=== PATIENT | female | born 1960 | race Caucasian/White ===

== ENCOUNTER 2021-07-06 09:49 | Outpatient (CLI) | payer BC, SELFPAY ==
--- NOTE | 2021-07-06 09:54 | MM_ITS ---
WS: [id number] BILATERAL DIGITAL SCREENING MAMMOGRAPHY WITH CAD CLINICAL INFORMATION: SCREENING HISTORY: Screening mammogram. No current complaints. COMPARISON: None. TECHNIQUE: Bilateral CC and MLO views. FINDINGS: Scattered fibroglandular densities bilaterally. No suspicious focal mass, asymmetry, calcifications, or architectural distortion. No evidence of malignancy. Biopsy marker left breast. Scattered punctate calcifications subareolar breasts bilaterally. IMPRESSION: MM/[place] [id number] BI-RADS: 2-Benign FOLLOW UP: 1 Year Follow-up Recommend return to annual screening mammography.
== END 2021-07-06 09:50 | disposition home or self-care (01) ==
LOC: RADSHAW 09:53
PROVIDERS: PCP Nurse Practitioner; Visit Provider Nurse Practitioner
DX: Z12.31 Encounter for screening mammogram for malignant neoplasm of breast (principal)
CPT/HCPCS: 77067

== ENCOUNTER 2021-07-12 08:47 | Outpatient (CLI) | payer BC, SELFPAY ==
[2021-07-12 09:04] VITALS: BMI 41.1
--- NOTE | 2021-07-12 09:05 | NMCV_ITS ---
phillip Bonita Gray Age: 60 Gender: F : 1960 Exam Date: 07/12/2021 09:50 Ordering Phys: Jesse Madrid M.D ([email or web address]) Technologist: NAOMI Jiang Exam Location: [facility] Indications: SHORTNESS OF BREATH STRESS TEST Please see separate stress test report in [facility] for full findings IMAGE PROTOCOL Rest/Stress 1 Lexiscan Day Radiopharmaceutical Dose (mCi) Administration Site Administered by Rest: Tc-99m 10.7 IV NAOMI Bernard Sestamibi Stress:Tc-99m 33.0 IV NAOMI Bernard Sestamibi Rest: 12-Jul-2021 60 Discovery 630 Stress: 12-Jul-2021 30 Discovery 630 0.4mg Lexiscan. Images obtained in supine and prone position. SPECT RESULTS Technical Quality: Good Raw Data Analysis: Breast attenuation Image Corrections: No attenuation or motion correction applied Summed Stress Score: 1 Summed Rest Score: 0 Summed Difference Score: 1 PERFUSION FINDINGS SPECT images demonstrate homogeneous tracer distribution throughout the myocardium. FUNCTIONAL RESULTS (calculated via Gated SPECT) Stress Image LV EF (%): 69 Stress EDV (mL):71 TID: 1.3 Stress ESV (mL):22 FUNCTIONAL FINDINGS: There is normal left ventricular systolic function. Elevated TID ratio of 1.3 IMPRESSIONS 1. Normal myocardial perfusion imaging with no evidence of ischemia 2. Elevated TID ratio of 1.3 2. LV systolic function is normal Jesse Madrid MD (Electronically Signed) Final Date: 13 July 2021 09:15 S
--- NOTE | 2021-07-12 09:05 | ECG_ITS ---
[facility] Test Date: 2021-07-12 Pat Name: Bonita Gray Department: Room: Gender: Female [employer]: : 1960 Requested By: Jesse Madrid Order Number: [id number] Marciano MD: Jesse Madrid M.D. Interpretive Statements NAME OF STUDY: LEXISCAN SESTAMIBI STRESS TEST INDICATION: [cp, ] Procedure: At the baseline, the blood pressure was 135/84 mmHg with a heart rate of 75 bpm. The electrocardiogram showed normal sinus rhythm, normal axis with normal ST and T's. The Lexiscan was infused over a period of 20 seconds. A total of 0.4 mg of Lexiscan was infused. The stress phase was continued for a total of 5 minutes. Heart rate was at the end of stress phase was 94 bpm and a blood pressure of 121/87 mmHg. The EKG at the peak infusion revealed since normal sinus rhythm with no significant ST-T wave changes. Sestamibi was injected 20 seconds after the Lexiscan infusion. Blood pressure at the end of recovery phase was 128/84 mmHg with a heart rate of 89 bpm. Conclusion: 1. Normal EKG response to Lexiscan infusion 2. No Lexiscan induced chest pain or cardiac arrhythmia. 3. Normal blood pressure and heart rate response. 4. Sestamibi/sestamibi perfusion scan pending; see separate report. Electronically Signed On 08-15-2021 10:13:37 ELECTRO TECH by Jesse Madrid M.D. [email or web address]
[2021-07-12] MEDS: regadenoson 0.4 Mg/5 ml Syringe IVP (10:38)
[2021-07-12 10:40] VITALS: BP 126/84; PULSE 86
== END 2021-07-12 08:48 | disposition home or self-care (01) ==
LOC: CDL 08:50
PROVIDERS: PCP Nurse Practitioner; Visit Provider Internal Medicine
DX: R07.9 Chest pain, unspecified (principal); R06.02 Shortness of breath
CPT/HCPCS: 78452; 93017; A9500; J2785

== ENCOUNTER 2022-01-18 06:00 | Outpatient (RCR) | payer BC, SELFPAY | END 2022-02-04 23:59 | disposition home or self-care (01) | LOC: GPT 06:00 | PROVIDERS: PCP Nurse Practitioner; Referring Provider Nurse Practitioner; Visit Provider Nurse Practitioner | DX: M54.16 Radiculopathy, lumbar region (principal); M16.0 Bilateral primary osteoarthritis of hip | CPT/HCPCS: 97110; 97162; G0283 ==

== ENCOUNTER 2022-02-05 06:00 | Outpatient (RCR) | payer BC, SELFPAY | END 2022-03-07 23:59 | disposition home or self-care (01) | LOC: GPT 06:00 | PROVIDERS: PCP Nurse Practitioner; Referring Provider Nurse Practitioner; Visit Provider Nurse Practitioner | DX: M47.896 Other spondylosis, lumbar region (principal); M54.16 Radiculopathy, lumbar region; M16.0 Bilateral primary osteoarthritis of hip | CPT/HCPCS: 97110; G0283 ==

== ENCOUNTER 2022-03-08 06:00 | Outpatient (RCR) | payer BC, SELFPAY | END 2022-03-22 23:59 | disposition home or self-care (01) | LOC: GPT 06:00 | PROVIDERS: PCP Nurse Practitioner; Referring Provider Nurse Practitioner; Visit Provider Nurse Practitioner | DX: M54.16 Radiculopathy, lumbar region (principal); M16.0 Bilateral primary osteoarthritis of hip | CPT/HCPCS: 97110; 97112; 97140; G0283 ==

== ENCOUNTER 2022-03-08 07:20 | Outpatient (CLI) | payer BC, SELFPAY ==
--- NOTE | 2022-03-08 07:29 | USCV_ITS ---
Bonita Gray Age: 61 Gender: F : 1960 Exam Date: 03/08/2022 07:50 Ordering Phys: Stan Ramon Technologist: JODY Exam Location[place] [facility] [place] [facility] [place] Indication: EVALUATE FOR AAA HISTORY: Diameter (cm) AP x Transverse x Length Velocity (cm/s) Waveform Prox Aorta: 2.73 x 2.58 x 73.50 Triphasic Mid Aorta: 1.76 x 1.99 x 90.10 Triphasic Distal Aorta: 1.36 x 1.44 x 106.60 Triphasic Right Iliac Prox: 1.05 x 1.06 x 100.80 Triphasic Left Iliac Prox: 1.10 x 1.17 x 97.50 Triphasic Stent Prox Landing x x Aneurysmal Sac Max x x Lt Lat Sac Dim Rt Lat Sac Dim Stent Dist Landing x x Right Iliac Stent x x Left Iliac Stent x x Right Renal Art Left Renal Art FINDINGS: Mild diffuse plaques in the abdominal aorta Normal Doppler flow velocities in the aorta and in the proximal common iliac arteries CONCLUSIONS Mild diffuse plaques in the abdominal aorta No evidence of aneurysm in the abdominal aorta or in the proximal common iliac arteries No significant stenosis, based on the Doppler velocities Dr Chuckie Meneses MD [facility] (Electronically Signed) Final Date: 08 March 2022 19:03 S
== END 2022-03-08 07:21 | disposition home or self-care (01) ==
LOC: RAD 07:22
PROVIDERS: PCP Nurse Practitioner; Visit Provider Nurse Practitioner
DX: R93.5 Abnormal findings on diagnostic imaging of other abdominal regions, including retroperitoneum (principal)
CPT/HCPCS: 93978

== ENCOUNTER 2022-10-17 13:18 | Outpatient (CLI) | payer BC, SELFPAY ==
--- NOTE | 2022-10-17 13:45 | USCV_ITS ---
Bonita Gray Age: 61 Gender: F : 1960 Exam Date: 10/17/2022 13:41 Ordering Phys: Jesse Madrid M.D ([email or web address]) Technologist: JODY [place]am [place] [facility] [place] Indication: CHEST PAIN AND SHORTNESS OF BREATH BP: 136 / 88 HR: 107 Rhythm: Sinus Technical Quality: Suboptimal MEASUREMENTS (Male / Female) Normal Values 2D ECHO LVOT Diameter 2.0 cm LV Ejection Fraction MOD 2C 69.8 % LV Ejection Fraction 2C AL 70.7 % LA Diameter 2.6 cm LA Width 2.7 cm LA Height 4.2 cm RA Width 2.9 cm RA Height 3.3 cm Aorta at Sinotubular Diameter 1.9 cm IVC Diameter 1.6 cm M-MODE Aortic Annulus Diameter 2.4 cm LA Ao Ratio MM 1.1 MV E Point Septal Separation 0.8 cm DOPPLER AV Peak Velocity 156.7 cm/s LVOT Peak Velocity 113.0 cm/s AV Area Cont Eq vti 2.1 cm squared AV Area Cont Eq pk 2.3 cm squared MV Peak Velocity 118.0 cm/s MV Area PHT 5.0 cm squared Mitral E to A Ratio 0.7 MV E' Velocity 47.5 cm/s Mitral E to MV E' Ratio 7.1 Mitral E to LV E' Lateral Ratio 6.0 Mitral E to LV E' Septal Ratio 8.6 TR Peak Velocity 154.7 cm/s TR Peak Gradient 9.6 mmHg TR Mean Velocity 132.4 cm/s TR Mean Gradient 6.9 mmHg TR Velocity Time Integral 27.0 cm TV Peak E Velocity 49.0 cm/s Right Atrial Pressure 3.0 mmHg Pulmonary Artery Systolic Pressu 12.6 mmHg PV Peak Velocity 101.0 cm/s RV Acceleration Time 0.1 s RV Ejection Time 0.2 s RV AcT/ET 0.6 FINDINGS Left Ventricle Technically limited quality echocardiogram because of poor ultrasonic windows. LV systolic function is normal with EF of 55 to 60%. No regional wall motion abnormalities are seen. Grade 1 diastolic dysfunction Right Ventricle Normal in size and function Right Atrium Normal in size Left Atrium Normal in size Mitral Valve Structurally normal mitral valve. Trace mitral regurgitation. Aortic Valve Grossly normal. No significant stenosis or regurgitation is seen. Tricuspid Valve Trace tricuspid regurgitation. Insufficient TR jet to calculate RVSP. Pulmonic Valve Not well visualzied Pericardium Normal Aorta Normal in size IVC Appears to normal CONCLUSIONS Technically limited quality echocardiogram because of poor ultrasonic windows. LV systolic is normal with EF 55 to 60% Grade 1 diastolic dysfunction Trace mitral regurgitation Trace tricuspid regurgitation No comparison studies are available Jesse Madrid MD (Electronically Signed) Final Date: 28 October 2022 11:14 S
== END 2022-10-17 13:19 | disposition home or self-care (01) ==
LOC: RAD 13:20
PROVIDERS: PCP Nurse Practitioner; Visit Provider Internal Medicine
DX: R06.00 Dyspnea, unspecified (principal); R07.9 Chest pain, unspecified; R06.02 Shortness of breath; I08.1 Rheumatic disorders of both mitral and tricuspid valves
CPT/HCPCS: 93306

== ENCOUNTER 2024-06-05 14:08 | Outpatient (CLI) | payer MEDICARE, SELFPAY ==
--- NOTE | 2024-06-05 14:11 | XR_ITS ---
WS: [id number] SCREENING DEXA SCAN [place] CLINICAL INFORMATION: POSTMENOPAUSAL STATUS COMPARISON: None. FINDINGS: The L1-L4 bone mineral density measures 1.153 g/cm2. This corresponds to a T score score of -0.2 and Z score of 0.2. Left femoral neck bone mineral density measures 1.158 g/cm2. This corresponds to a T score of 1.2 and Z score of 1.6. Right femoral neck bone mineral density measures 1.149 g/cm2. This corresponds to a T score 1.1of and Z score of 1.5. Mean femoral neck bone mineral density measures 1.153 g/cm2. This corresponds to a T score of 1.2 and Z score of 1.5. XR/XR DEXA axial skeleton* [id number] IMPRESSION: Normal bone mineralization. Patient's FRAX calculated 10 year probability for major osteoporotic fracture i s 6.4% and osteoporotic hip fracture is 0.3%.
== END 2024-06-05 14:09 | disposition home or self-care (01) ==
LOC: RAD 14:09
PROVIDERS: PCP Nurse Practitioner; Visit Provider Nurse Practitioner
DX: Z13.820 Encounter for screening for osteoporosis (principal); Z78.0 Asymptomatic menopausal state
CPT/HCPCS: 77080

== ENCOUNTER 2024-06-11 14:01 | Outpatient (CLI) | payer MEDICARE, SELFPAY ==
--- NOTE | 2024-06-11 14:06 | MM_ITS ---
WS: [id number] BILATERAL 3D TOMOSYNTHESIS DIGITAL SCREENING MAMMOGRAPHY WITH CAD CLINICAL INFORMATION: SCREENING HISTORY: Screening mammogram. No current complaints. COMPARISON: 2020 TECHNIQUE: Bilateral CC and MLO views. FINDINGS: Scattered fibroglandular densities bilaterally. No suspicious focal mass, asymmetry, calcifications, or architectural distortion. No evidence of malignancy. Biopsy clip LEFT breast. Incidental punctate calcifications bilaterally. Vascular calcification. MM/[place] [id number] IMPRESSION: DENSITY: There are scattered areas of fibroglandular density. BI-RADS: 2 - Benign. FOLLOW UP: 1 Year Follow-up Recommend return to annual screening mammography.
== END 2024-06-11 14:02 | disposition home or self-care (01) ==
LOC: RAD 14:01
PROVIDERS: PCP Nurse Practitioner; Visit Provider Nurse Practitioner
DX: Z12.31 Encounter for screening mammogram for malignant neoplasm of breast (principal); R92.323 Mammographic fibroglandular density, bilateral breasts; R92.1 Mammographic calcification found on diagnostic imaging of breast
CPT/HCPCS: 77063; 77067

== ENCOUNTER → 2024-07-07 13:16 | Outpatient (BNVA) | payer MEDICARE, SELFPAY | PROVIDERS: PCP Nurse Practitioner; Visit Provider Nurse Practitioner Family | DX: L57.0 Actinic keratosis (principal); L82.1 Other seborrheic keratosis; L81.4 Other melanin hyperpigmentation; D22.5 Melanocytic nevi of trunk; Z85.828 Personal history of other malignant neoplasm of skin; Z85.820 Personal history of malignant melanoma of skin | CPT/HCPCS: 17000; 99213 ==

== ENCOUNTER → 2025-07-09 11:25 | Outpatient (BNVA) | payer MEDICARE, SELFPAY | PROVIDERS: PCP Nurse Practitioner; Visit Provider Nurse Practitioner Family | DX: L30.0 Nummular dermatitis (principal); L57.8 Other skin changes due to chronic exposure to nonionizing radiation; L81.4 Other melanin hyperpigmentation; D22.5 Melanocytic nevi of trunk; L82.1 Other seborrheic keratosis | CPT/HCPCS: 99213 ==